=== PATIENT | female | born 1990 | race Caucasian/White ===

== ENCOUNTER 2020-01-28 12:49 | Emergency (ER) | payer OTHER, SELFPAY ==
[2020-01-28 13:03] VITALS: BP 113/61; PULSE 75; RESP 18; TEMP 36.6; O2SAT 100
[2020-01-28 13:15] LABS: Glucose Point of Care 98 (65-105)
--- NOTE | 2020-01-28 13:22 | ED.GENADULT ---
HPI - General Adult General Chief complaint: Ear Stated complaint: dizziness Time Seen by Provider: 01/28/20 13:22 Source: patient Mode of arrival: ambulatory Limitations: no limitations History of Present Illness HPI narrative: 29-year-old female patient states that the last 2 to 3 weeks she has been feeling just kind of off . Patient states she feels slightly dizzy at times and does like feels like her equilibrium is off balance. Denies any fever. Denies any sneezing, sore throat, coughing or shortness of breath. Denies any abdominal pain, nausea, vomiting or diarrhea. Patient denies taking anything for her symptoms. Patient states she was concerned that maybe her blood sugar was low because she did have issues with diabetes when she was . Denies any history of high blood pressure. Related Data Home Medications Medication Instructions Recorded Confirmed No Home Medications 01/28/20 01/28/20 Allergies Allergy/AdvReac Type Severity Reaction Status Date / Time codeine Allergy Nausea Verified 01/28/20 13:16 Penicillins Allergy Nausea Verified 01/28/20 13:16 Review of Systems Review of Systems: Narrative: CONSTITUTIONAL: Denies fever, chills, or sweats. EYES: Denies visual changes, redness, or discharge. ENT: Denies rhinorrhea, congestion, sore throat, or otalgia. CARDIOVASCULAR: Denies chest pain, palpitations, or edema. RESPIRATORY: Denies cough or dyspnea. GASTROINTESTINAL: Denies abdominal pain, nausea, vomiting, or diarrhea. GENITOURINARY: Denies dysuria or hematuria. SKIN: Denies rash or itching. MUSCULOSKELETAL: Denies back pain, joint pain, or myalgia. NEUROLOGIC: Denies headache, numbness, or weakness. Positive dizziness PSYCHIATRIC: Denies anxiety or depression. PMFSH Comments At the time of my signature I agree with nursing past medical history, surgical, social, and family history. There is no relevant family history pertinent to the presenting complaint. Exam Narrative: Exam Narrative: GENERAL: Well-appearing, well-nourished, and in no acute distress. HEAD: Normocephalic, atraumatic. No tenderness noted to frontal maxillary sinuses on palpation EYES: PERRLA and EOMI. ENT: Nares with erythema and edema noted bilaterally with the left nare swollen shut, no rhinorrhea or epistaxis. Mucous membranes moist. Posterior pharynx with no erythema, tonsil enlargement, exudates or lesions present. Bilateral TMs are clear no erythema or foreign bodies to the canal. There is some earwax noted to the right ear. NECK: Supple. No lymphadenopathy CHEST: Clear to auscultation. No respiratory distress. HEART: Regular rate and rhythm. No murmur heard. Normal peripheral pulses. ABDOMEN: Soft, nontender, nondistended, normal active bowel sounds. EXTREMITIES: Normal range of motion. No edema. SKIN: Warm, dry, no rash. NEURO: No focal deficits. Alert and oriented x3. Course Vital Signs Vital signs: Vital signs reviewed. Procedures Ear Wax Removal Right Ear: Ear Wax Removal Date: 01/28/20 Ear Wax Removal Time: 13:35 Cerumenolytic Used: 5-10% Sodium Bicarb solution Results: Re-examined: cerumen removed completely TM Examination: TM(s) intact, normal appearance Ear Canal Exam: atraumatic Patient Tolerated Procedure: well Complications: no problems Technique: ear canal irrigated and ear canal curetted Additional Comments: The patient had cerumen removed from the R ear canal with warm water and peroxide irrigation and a loop in order to visualize the TM. The TM has no perforations or erythema post procedure. There were no complications. Medical Decision Making Differential Diagnosis Differential Diagnosis: Differential diagnosis: Otitis media, otitis externa, perforated TM, infection of the outer ear, foreign body or cerumen impaction, ruptured TM, acute mastoiditis, ligament otitis externa, dehydration, pneumonia, sepsis, dental or intraoral infection
== END 2020-01-28 13:37 | disposition home or self-care (01) ==
PROVIDERS: Emergency Provider Nurse Practitioner Family
DX: H61.21 Impacted cerumen, right ear (principal); J30.2 Other seasonal allergic rhinitis
CPT/HCPCS: 69210; 81003; 82948; 99213; A9270; G0463

== ENCOUNTER 2020-03-25 08:29 | Emergency (ER) | payer OTHER, SELFPAY ==
[2020-03-25 08:47] VITALS: BP 134/82; PULSE 98; RESP 16; TEMP 37.3; O2SAT 99
--- NOTE | 2020-03-25 08:49 | ED.URI ---
HPI - URI/Sore Throat General Chief Complaint: Ear Stated Complaint: Ear/ Nose/Throat Time Seen by Provider: 03/25/20 08:49 Source: patient and RN notes reviewed History of Present Illness HPI Narrative: Patient is a 29-year-old female who presents the urgent care with complaints of intermittent dizziness and wanting her ears checked . Patient states that she has a history of this and was treated for a sinus infection in the past and was told to use antihistamines and Flonase. Patient states that it did improve however she has been off her medication for the last couple weeks and yesterday was having some intermittent dizziness throughout the day. Patient denies any dizziness at this time. Also reports of some mild pain to the left ear. Denies of any fever, chills, nausea, vomiting, changes in vision. No other acute complaints. No acute distress noted. Patient aware the plan of care. Related Data Allergies Allergy/AdvReac Type Severity Reaction Status Date / Time codeine Allergy Nausea Verified 01/28/20 13:16 Penicillins Allergy Nausea Verified 01/28/20 13:16 Review of Systems Review of Systems: Narrative: CONSTITUTIONAL: Denies fever, chills, or sweats. EYES: Denies visual changes, redness, or discharge. ENT: Reports of some discomfort to the left ear and intermittent dizziness CARDIOVASCULAR: Denies chest pain, palpitations, or edema. RESPIRATORY: Denies cough or dyspnea. GASTROINTESTINAL: Denies abdominal pain, nausea, vomiting, or diarrhea. GENITOURINARY: Denies dysuria or hematuria. SKIN: Denies rash or itching. MUSCULOSKELETAL: Denies back pain, joint pain, or myalgia. NEUROLOGIC: Denies headache, numbness, or weakness. All other systems reviewed are negative, except as documented in HPI. PMFSH Social History Social History Gender identity (if verbalized by the patient): Female Comments At the time of my signature, I reviewed and agree with the nursing past medical, surgical, social, and family history. There is no relevant family history pertinent to the patient complaint. Exam Narrative: Exam Narrative: GENERAL: This is a well-nourished, well-developed patient, in no apparent distress. HEAD: normocephalic, atraumatic. EYES: PERRL. Sclera clear/white. Vision is grossly intact. EARS: External ears normal, auditory canals clear and without drainage, mild fluid noted behind the left TM, right TM normal without perforation. Hearing grossly intact. NOSE: External nose normal with no obvious nasal discharge, mild inflamed erythemic right nare, left nare without redness, no rhinorrhea. THROAT: Mucous membranes moist, posterior pharynx clear. Mild postnasal drainage NECK: Neck supple, non-tender without lymphadenopathy CARDIOVASCULAR: Regular rate and rhythm without murmurs, gallops, or rubs. RESPIRATORY: Clear to auscultation. Breath sounds equal bilaterally. No wheezes, rales, or rhonchi. SKIN: warm, intact with no suspicious lesions or rash, good texture and turgor. NEURO: awake, alert, and oriented to person, place and time. There were no obvious focal neurologic abnormalities. EXTREMITIES: No clubbing, cyanosis, or edema. Course Vital Signs Vital signs: Vital Signs Temperature 99.2 F 03/25/20 08:47 Pulse Rate 98 03/25/20 08:47 Respiratory Rate 16 03/25/20 08:47 Blood Pressure 134/82 03/25/20 08:47 Pulse Oximetry 99 03/25/20 08:47 Temperature 99.2 F 03/25/20 08:47 Pulse Rate 98 03/25/20 08:47 Respiratory Rate 16 03/25/20 08:47 Blood Pressure 134/82 03/25/20 08:47 Pulse Oximetry 99 03/25/20 08:47 Reviewed MDM - URI/Sore Throat MDM Narrative Medical decision making narrative: Advised the patient to use an [id number] antihistamine such as Claritin or Zyrtec and use Flonase every other night at bedtime. Do not sleep with the windows open. You will find that symptoms will likely increase with weather change, elevatio
== END 2020-03-25 09:15 | disposition home or self-care (01) ==
PROVIDERS: Emergency Provider Nurse Practitioner Family
DX: R42 Dizziness and giddiness (principal); J01.81 Other acute recurrent sinusitis
CPT/HCPCS: 99213; G0463

== ENCOUNTER 2020-11-19 11:57 | Outpatient (CLI) | payer OTHER, SELFPAY ==
[2020-11-19 13:46] LABS: Free T4 Free Thyroxine 0.99 ng/mL (0.78-2.19)
== END 2020-11-19 11:58 | disposition home or self-care (01) ==
PROVIDERS: PCP Family Medicine; Visit Provider Obstetrics & Gynecology
DX: L65.9 Nonscarring hair loss, unspecified (principal)
CPT/HCPCS: 36415; 84439; 84443

== ENCOUNTER 2020-12-12 16:34 | Outpatient (CLI) | payer OTHER, SELFPAY | END 2020-12-12 16:35 | disposition home or self-care (01) | LOC: ANHCOVIDVC 16:34 | PROVIDERS: PCP Family Medicine | DX: Z23 Encounter for immunization (principal) | CPT/HCPCS: 0001A; 91300 ==

== ENCOUNTER 2020-12-27 17:09 | Emergency (ER) | payer OTHER, SELFPAY ==
[2020-12-27 17:29] VITALS: BP 124/81; PULSE 74; RESP 20; TEMP 36.8; O2SAT 100
--- NOTE | 2020-12-27 17:41 | ED.GENADULT ---
HPI - General Adult General Chief complaint: Extremity Problem,Nontraumatic Stated complaint: Toe is tingling Time Seen by Provider: 12/27/20 17:41 Source: patient and RN notes reviewed Mode of arrival: ambulatory Limitations: no limitations History of Present Illness HPI narrative: 30-year-old female presents with complaints of intermittent tingling to LT 3rd, 4th, and 5th toes for the past 2 months. Serina reports symptoms increased over the past week, wears shoes with heels (1 inch) and on feet most of the 5 days a week. No treatment. Denies injury. No swelling. Denies history of CHF, DVT, PE, or gout. Denies pain with bear weight. Denies radiating pain. No loss of mobility. No exacerbating factors. Denies inability to bear weight. Denies drainage, discoloration, or suspect foreign body. Denies fever. Denies large intake of meats, seafood, or alcoholic beverages. The patient reports she have not been diagnosed with COVID-19. The patient reports she is not waiting for the results of a COVID-19 lab test. The patient reports she do not have fever, chills, weakness, or fatigue. The patient reports he do not have a new or worsening cough or shortness of breath. Denies chest pain. The patient reports she do not have any rhinorrhea, congestion, loss of taste, sore throat, nausea, vomiting, abdominal pain, and diarrhea. Tolerating po intake well. Denies recent traveling. Denies concerns for COVID-19 or exposures been home with limited outdoor exposure except for essential household needs, work, and return home. At this time, patient is not suspected of having COVID-19. Some parts of this dictation were generated by voice recognition software and may contain typographical and/or grammatical inaccuracies. Related Data Home Medications Medication Instructions Recorded Confirmed multivitamin 1 cap PO DAILY 08/29/20 12/27/20 Allergies Allergy/AdvReac Type Severity Reaction Status Date / Time Penicillins Allergy Nausea Verified 11/19/20 11:23 codeine AdvReac Nausea Verified 11/19/20 11:23 Review of Systems Review of Systems: Narrative: CONSTITUTIONAL: Denies fever, chills, sweats. EYES: Denies visual changes, redness, discharge. ENT: Denies rhinorrhea, congestion, sore throat, otalgia. CARDIOVASCULAR: Denies chest pain, palpitations, edema. RESPIRATORY: Denies dyspnea, wheezing, cough. GASTROINTESTINAL: Denies abdominal pain, nausea, vomiting, diarrhea. SKIN: Denies rash or itching. MUSCULOSKELETAL: Denies acute back pain or myalgia. Complains of intermittent tingling to LT 3rd, 4th, and 5th toes toe. Denies drainage, swelling, erythema. NEUROLOGIC: Denies numbness or focal weakness. PSYCHIATRIC: Denies anxiety or depression. All systems reviewed & are unremarkable except as noted in HPI and below. 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 There is no relevant patient's past medical history pertinent to the presenting complaint, no relevant family history pertinent to the presenting complaint. Exam Narrative: Exam Narrative: GENERAL: This is a well-nourished, well-dev
== END 2020-12-27 18:06 | disposition home or self-care (01) ==
PROVIDERS: Emergency Provider Nurse Practitioner Family; PCP Family Medicine
DX: R20.2 Paresthesia of skin (principal); K21.9 Gastro-esophageal reflux disease without esophagitis
CPT/HCPCS: 99211; G0463

== ENCOUNTER 2021-01-02 16:31 | Outpatient (CLI) | payer OTHER, SELFPAY | END 2021-01-02 16:32 | disposition home or self-care (01) | LOC: ANHCOVIDVC 16:31 | PROVIDERS: PCP Family Medicine | DX: Z23 Encounter for immunization (principal) | CPT/HCPCS: 0002A; 91300 ==

== ENCOUNTER 2022-01-13 | Day surgery (SDC) | payer OTHER, SELFPAY ==
[2022-01-06 08:27] VITALS: BMI 21.0
[2022-01-13 07:50] VITALS: BP 119/70; PULSE 84; RESP 18; TEMP 36.9; O2SAT 100
[2022-01-13] MEDS: LACTATED RINGERS 1,000 ML 150 ML IV CONT (08:03)
--- NOTE | 2022-01-13 08:19 | WPDANESEPPF ---
Anes - Initial Pre Proc Eval Procedure: Operation Date: 01/13/22 09:00 Proposed Procedures p Colonoscopy - Pool Arreguin MD Date/Time: 01/13/22 08:19 Surgeon: Pool Arreguin MD Pre Op Diagnosis: abdominal pain Patient Data Age: 31 Gender: F Height: 1.6 m Weight: 54 kg Last Vital Signs Temp 98.5 F 01/13/22 07:50 Pulse 84 01/13/22 07:50 Resp 18 01/13/22 07:50 BP 119/70 01/13/22 07:50 Pulse Ox 100 01/13/22 07:50 Allergies Allergy/AdvReac Type Severity Reaction Status Date / Time Penicillins Allergy Nausea Verified 01/13/22 07:49 codeine AdvReac Nausea Verified 01/13/22 07:49 Home Medications Medication Instructions Recorded Confirmed Type drospirenone 3 mg-ethinyl 1 tablet PO DAILY #84 tablet 11/05/21 01/06/22 Rx estradiol 0.02 mg tablet Lacto.acidophilus-Bif.animalis 1 cap PO DAILY 01/06/22 01/06/22 History [Daily Probiotic] Patient hx anesthesia problems: none Family hx anesthesia problems: none Results Review: All pre-operative results and documents have been reviewed as part of the pre-operative evaluation. COUNTS INCLUDE 234 BEDS AT THE [facility] Past Medical History Medical History (Updated 11/19/21 @ 09:43 by ADI Henriquez) Acid reflux Chlamydia Hypoglycemia Left sided abdominal pain Vaginal delivery x2 Surgical History Surgical History [place] teeth extracted Family History Family History Father Alive and well Mother Alive and well Social History Social History Smoking status: Never smoker Tobacco type: cigarettes Second hand tobacco smoke exposure: No Alcohol intake: current Drinks per week: 1 Alcohol use details: once montly Substance use: never Living arrangements: with family 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 Gender identity (if verbalized by the patient): Female Sexual Orientation (if Verbalized by the Patient): Straight or Heterosexual Anes - Eval Final PreProcedure Day of Procedure 01/13/22 08:19 Patient weight: normal Heart: regular rate and rhythm Lungs: clear to auscultation Airway: Mallampati scale class II Neurological: alert and oriented Last oral intake: >/= 8 hours ASA classification: II Emergent: no Anesthetic plan: proceed Anesthesia type and monitoring: general GIVS and standard monitoring Results Review: All pre-operative results and documents have been reviewed as part of the pre-operative evaluation. Informed Consent: The patient's anesthetic plan and its attendant risks and benefits were discussed with the patient/family/POA. Questions were solicited and answers provided to the satisfaction of the patient/family/POA.
--- NOTE | 2022-01-13 08:38 | WPDGICN ---
Assessment and Plan Assessment and plan (1) Left sided abdominal pain: Code(s): R10.9 - Unspecified abdominal pain Status: Acute Assessment and Plan: Patient with vague aunt going left-sided abdominal pain. Etiology unclear. May represent irritable bowel syndrome. Plan is for high-fiber diet a colonoscopy is requested to exclude organic disease will be performed. Further recommendations will be given after endoscopy. GI Consult Note Consult date/time: 01/13/22 08:38 HPI: Serina Tapia is a 31 year old female Presents for colonoscopy. Patient has complaints of ongoing left lower quadrant discomfort. She variously describes it as an inflammation, or as a fullness. She states that occurs intermittently. Although she states it is always somewhat present. She reports that her bowel habits are normal. She does report that the discomfort increases with frustration and anxiety and with difficulties with her children. Patient has previously undergone gynecological evaluation pelvic ultrasounds apparently that her unremarkable. A colonoscopy is requested to exclude organic disease in this area. Patient denies any bleeding. She has had no weight loss. Her family history is noncontributory. She does report that it came on after running. She states that she runs primarily in the summer. 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 Review of Systems Review of Systems: All systems reviewed & are unremarkable except as noted in HPI and below PMFSH Past Medical History Medical History (Updated 11/19/21 @ 09:43 by ADI Henriquez) Acid reflux Chlamydia Hypoglycemia Left sided abdominal pain Vaginal delivery x2 Surgical History Surgical History [place] teeth extracted Family History Family History Father Alive and well Mother Alive and well Social History Social History Smoking status: Never smoker Tobacco type: cigarettes Second hand tobacco smoke exposure: No Alcohol intake: current Drinks per week: 1 Alcohol use details: once montly Substance use: never Living arrangements: with family 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 Gender identity (if verbalized by the patient): Female Sexual Orientation (if Verbalized by the Patient): Straight or Heterosexual Meds Home Medications and Allergies Home Medications Medication Instructions Recorded Confirmed Type drospirenone 3 mg-ethinyl 1 tablet PO DAILY #84 tablet 11/05/21 01/06/22 Rx estradiol 0.02 mg tablet Lacto.acidophilus-Bif.animalis 1 cap PO DAILY 01/06/22 01/06/22 History [Daily Probiotic] Allergies Allergy/AdvReac Type Severity Reaction Status Date / Time Penicillins Allergy Nausea Verified 01/13/22 07:49 codeine AdvReac Nausea Verified 01/13/22 07:49 Vital Signs Vital Signs - 24 hr 01/13/22 07:50 Temperature 98.5 F Pulse Rate 84 Respiratory Rate 18 Blood Pressure 119/70 Pulse Oximetry 100 Exam Narrative: Physical exam reveals patient to be alert. Vital signs stable. HEENT exam is unremarkable. Patient is anicteric. Lungs are clear to auscultation and percussion. Heart is without murmur or extra sounds. Abdominal exam bowel sounds are present soft nontender with no hepatosplenomegaly. Digital external rectal exam is normal.
[2022-01-13 09:13] VITALS: BP 91/45; PULSE 72; RESP 18; O2SAT 100
[2022-01-13 09:23] VITALS: BP 102/52; PULSE 69; RESP 18; O2SAT 100
[2022-01-13 09:33] VITALS: BP 107/60; PULSE 68; RESP 22; O2SAT 100
== END 2022-01-13 09:50 | disposition home or self-care (01) ==
PROVIDERS: PCP Family Medicine; Visit Provider Internal Medicine Gastroenterology
PROC: 0DJD8ZZ Inspection of Lower Intestinal Tract, Via Natural or Artificial Opening Endoscopic (ICD-10-PCS; CPT 45378; principal; 2022-01-13 09:00)
DX: R10.9 Unspecified abdominal pain (principal); K21.9 Gastro-esophageal reflux disease without esophagitis; K64.8 Other hemorrhoids
CPT/HCPCS: 45378; J2704; J7120

== ENCOUNTER 2022-04-14 00:11 | Day surgery (SDC) | payer OTHER, SELFPAY ==
[2022-03-25 14:28] VITALS: BMI 21.9
--- NOTE | 2022-04-14 07:35 | P.PNAN_ITS ---
Anes - Initial Pre Proc Eval Procedure: Operation Date: 04/14/22 09:30 Proposed Procedures p Esophagogastroduodenoscopy - Pool Arreguin MD Date/Time: 04/14/22 07:35 Surgeon: Pool Arreguin MD Pre Op Diagnosis: abnormal CT scan Patient Data Age: 31 Gender: F Height: 1.6 m Weight: 56 kg Allergies Allergy/AdvReac Type Severity Reaction Status Date / Time Penicillins Allergy Nausea Verified 04/14/22 09:07 codeine AdvReac Nausea Verified 04/14/22 09:07 Home Medications Medication Instructions Recorded Confirmed Type drospirenone 3 mg-ethinyl 1 tablet PO DAILY #84 tabs 01/28/22 04/14/22 Rx estradiol 0.02 mg tablet (BETH (28)) omeprazole 20 mg capsule,delayed 20 mg PO DAILY 1 month #30 caps 03/05/22 04/14/22 Rx release Patient hx anesthesia problems: none Family hx anesthesia problems: none Results Review: All pre-operative results and documents have been reviewed as part of the pre- operative evaluation. [facility] Past Medical History Medical History (Updated 04/14/22 @ 07:35 by Jc Franz DO) Abnormal CT scan, gastrointestinal tract Acid reflux Anxiety Bloating Chlamydia Constipation Hypoglycemia Hypothyroidism Left sided abdominal pain Right upper quadrant pain Vaginal delivery x2 Surgical History Surgical History [place] teeth extracted Family History Family History Father Alive and well Mother Alive and well Social History Social History Smoking status: Never smoker Tobacco type: cigarettes Second hand tobacco smoke exposure: No Alcohol intake: current Drinks per week: 1 Alcohol use details: once montly Substance use: never Substance use type: does not use Living arrangements: alone 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 Gender identity (if verbalized by the patient): Female Sexual Orientation (if Verbalized by the Patient): Straight or Heterosexual Spiritual care concerns: No Anes - Eval Final PreProcedure Day of Procedure 04/14/22 07:35 Patient weight: normal Heart: regular rate and rhythm Lungs: clear to auscultation Airway: Mallampati scale class II Neurological: alert and oriented Last oral intake: >/= 8 hours ASA classification: II Emergent: no Anesthetic plan: proceed Anesthesia type and monitoring: general GIVS and standard monitoring Results Review: All pre-operative results and documents have been reviewed as part of the pre- operative evaluation. Informed Consent: The patient's anesthetic plan and its attendant risks and benefits were discussed with the patient/family/POA. Questions were solicited and answers provided to the satisfaction of the patient/family/POA.
[2022-04-14] MEDS: LACTATED RINGERS 1,000 ML 150 ML IV CONT (09:09)
[2022-04-14 09:10] VITALS: BP 120/73; PULSE 69; RESP 16; TEMP 36.6; O2SAT 100; BMI 21.0
--- NOTE | 2022-04-14 09:11 | PM.IMHP ---
H&P: HPI History of Present Illness Date/Time: 04/14/22 09:11 Chief Complaint: Left upper quadrant abdominal pain with abnormal CT scan. Narrative: This is a 31-year-old white female patient with left upper quadrant abdominal pain. She underwent a colonoscopy in January that was unremarkable. Because of ongoing left upper quadrant abdominal pain a CT scan was performed. This revealed a large amount of stool suggesting IBS. She also had thickening to the gastric wall. For this reason an EGD is requested patient. Patient reports some improvement on taking Tums Rolaids and Prilosec. She is felt to have gastritis. She states pain never totally go away. Patient reports the pain does intensify with anxiety and stress. Her family history is noncontributory. Patient presents today for EGD to assess more thoroughly. Review of Systems Review of Systems: Review of systems noncontributory. [facility] Past Medical History Medical History (Updated 04/14/22 @ 07:35 by Jc Franz, ) Abnormal CT scan, gastrointestinal tract Acid reflux Anxiety Bloating Chlamydia Constipation Hypoglycemia Hypothyroidism Left sided abdominal pain Right upper quadrant pain Vaginal delivery x2 Surgical History Surgical History [place] teeth extracted Family History Family History Father Alive and well Mother Alive and well Social History Social History Smoking status: Never smoker Tobacco type: cigarettes Second hand tobacco smoke exposure: No Alcohol intake: current Drinks per week: 1 Alcohol use details: once montly Substance use: never Substance use type: does not use Living arrangements: alone 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 Gender identity (if verbalized by the patient): Female Sexual Orientation (if Verbalized by the Patient): Straight or Heterosexual Spiritual care concerns: No Meds Home Medications and Allergies Home Medications Medication Instructions Recorded Confirmed Type drospirenone 3 mg-ethinyl 1 tablet PO DAILY #84 tabs 01/28/22 04/14/22 Rx estradiol 0.02 mg tablet (BETH (28)) omeprazole 20 mg capsule,delayed 20 mg PO DAILY 1 month #30 caps 03/05/22 04/14/22 Rx release Allergies Allergy/AdvReac Type Severity Reaction Status Date / Time Penicillins Allergy Nausea Verified 04/14/22 09:07 codeine AdvReac Nausea Verified 04/14/22 09:07 Exam Narrative: Physical exam reveals patient to be alert. Vital signs stable. HEENT exam is unremarkable. Patient is anicteric. Lungs are clear to auscultation and percussion. Heart is without murmur or extra sounds. Abdominal exam bowel bowel sounds present soft nontender with no organomegaly. Digital external rectal exam is normal. Assessment and Plan Assessment and plan (1) Left sided abdominal pain: Code(s): R10.9 - Unspecified abdominal pain Status: Acute Assessment and Plan: Patient with ongoing left upper quadrant abdominal pain. May be related to IBS versus gastritis. Plan to continue PPI therapy EGD is to be performed today. (2) Abnormal CT scan, gastrointestinal tract: Code(s): R93.3 - Abnormal findings on diagnostic imaging of other parts of digestive tract Status: Acute Assessment and Plan: CT scan suggest thickening of the gastric wall this will be assessed by EGD today. (3) Constipation: Code(s): K59.00 - Constipation, unspecified Status: Acute Assessment and Plan: Large amount of stool noted on CT scanning. Suggest stool softener such as Metamucil and laxatives as needed. (4) Irritable bowel syndrome: Code(s): K58.9 - Irritable bowel syndrome without diarrhea Status: Acute Assessment and Plan: Pain intensifies with stress suggesti
[2022-04-14 09:57] VITALS: BP 87/38; PULSE 68; RESP 20; O2SAT 100
[2022-04-14 10:07] VITALS: BP 89/50; PULSE 56; RESP 20; O2SAT 100
[2022-04-14 10:17] VITALS: BP 103/65; PULSE 63; RESP 20; O2SAT 100
== END 2022-04-14 10:31 | disposition home or self-care (01) ==
PROVIDERS: PCP Family Medicine; Visit Provider Internal Medicine Gastroenterology
PROC: 0DJ08ZZ Inspection of Upper Intestinal Tract, Via Natural or Artificial Opening Endoscopic (ICD-10-PCS; CPT 43235; principal; 2022-04-14 09:30)
DX: K31.7 Polyp of stomach and duodenum (principal); R10.12 Left upper quadrant pain; K21.9 Gastro-esophageal reflux disease without esophagitis; K59.00 Constipation, unspecified; K58.9 Irritable bowel syndrome, unspecified
CPT/HCPCS: 43239; 43251; 87081; 88305; J2704; J7120

== ENCOUNTER 2022-09-15 11:48 | Emergency (ER) | payer OTHER, SELFPAY | END 2022-09-15 12:33 | disposition left against medical advice (07) | PROVIDERS: Emergency Provider Nurse Practitioner Adult Health; PCP Family Medicine | DX: J06.9 Acute upper respiratory infection, unspecified (principal) | CPT/HCPCS: 99199 ==

== ENCOUNTER 2022-09-15 12:25 | Emergency (ER) | payer OTHER, SELFPAY ==
[2022-09-15 12:52] VITALS: BP 119/79; PULSE 115; RESP 23; TEMP 37.2; O2SAT 97
--- NOTE | 2022-09-15 13:14 | ED.URI ---
HPI - URI/Sore Throat General Chief Complaint: Upper Respiratory Infection Stated Complaint: COUGH/CHEST PAIN/BODY ACHES Time Seen by Provider: 09/15/22 12:56 Source: patient Mode of arrival: ambulatory Limitations: no limitations History of Present Illness HPI Narrative: Patient presents today with a one-week history of cough, body aches, rhinorrhea. Denies congestion, sore throat cough fever, shortness of breath. Denies sick contacts. Reports both of her daughters were sick with fevers last week. She has been using a humidifier at home, but no [id number] medication for her symptoms. Related Data Allergies Allergy/AdvReac Type Severity Reaction Status Date / Time Penicillins Allergy Nausea Verified 09/15/22 12:56 codeine AdvReac Nausea Verified 09/15/22 12:56 Review of Systems Review of Systems: CONSTITUTIONAL: Denies fever, chills, or sweats.+ body aches EYES: Denies visual changes, redness, or discharge. ENT: Denies congestion, sore throat, or otalgia.+ rhinorrhea CARDIOVASCULAR: Denies chest pain, palpitations, or edema. RESPIRATORY: Denies dyspnea.+ cough GASTROINTESTINAL: Denies abdominal pain, nausea, vomiting, or diarrhea.+ decreased appetite GENITOURINARY: Denies dysuria or hematuria. SKIN: Denies rash, itching, or wounds. MUSCULOSKELETAL: Denies back pain, joint pain, or myalgia. NEUROLOGIC: Denies headache, numbness, tingling, or weakness. PSYCH: Denies depression or anxiety. [facility] Past Medical History Medical History Abnormal CT scan, gastrointestinal tract Acid reflux Anxiety Bloating Chlamydia Constipation Hypoglycemia Hypothyroidism Left sided abdominal pain Right upper quadrant pain Vaginal delivery x2 Surgical History Surgical History [place] teeth extracted Family History Family History Father Alive and well Mother Alive and well Social History Social History Smoking status: Never smoker Tobacco type: cigarettes Second hand tobacco smoke exposure: No Alcohol intake: current Drinks per week: 1 Alcohol use details: once montly Substance use: never Substance use type: does not use 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 Please see nursing chart for further information. There is no relevant family history pertinent to the presenting complaint Exam Narrative: GENERAL: Well-appearing, well-nourished, and in no acute distress. HEAD: Normocephalic, atraumatic. EYES: EOMI. No redness or drainage. Conjunctivae normal. ENT: Mucous membranes pink and moist. Nares clear. No rhinorrhea. TMs normal bilaterally. Throat normal. Uvula midline. NECK: Normal AROM. Supple. No lymphadenopathy. CHEST: No respiratory distress. Clear to auscultation. Patient was not tachypneic during my exam. HEART: Regular rate and rhythm. No murmur appreciated. Normal peripheral pulses. EXTREMITIES: Normal range of motion. No edema. SKIN: Warm, dry, no rash. Capillary refill normal. Normal skin turgor. NEURO: No focal deficits. Alert and oriented x3. Gait steady. PSYCH: Normal affect. No signs of depression or anxiety. Course Course Level of Care: Express Care Visit Vital Signs Vital signs: Vital Signs Temperature 98.9 F 09/15/22 12:52 Pulse Rate 115 H 09/15/22 12:52 Respiratory Rate 23 H 09/15/22 12:52 Blood Pressure 119/79 09/15/22 12:52 Pulse Oximetry 97 09/15/22 12:52 Oxygen Delivery Room Air
== END 2022-09-15 13:22 | disposition home or self-care (01) ==
PROVIDERS: Emergency Provider Nurse Practitioner; PCP Family Medicine
DX: J40 Bronchitis, not specified as acute or chronic (principal); E03.9 Hypothyroidism, unspecified
CPT/HCPCS: 99213; G0463